=== PATIENT | female | born 1960 | race Hispanic/Latino ===

== ENCOUNTER 2023-07-03 17:20 | Emergency (ER) | payer OTHER | END 2023-07-03 18:35 | disposition home or self-care (01) | LOC: ERS 17:20 | DX: M54.2 Cervicalgia (principal); E11.9 Type 2 diabetes mellitus without complications; I10 Essential (primary) hypertension; Z79.84 Long term (current) use of oral hypoglycemic drugs | CPT/HCPCS: 99283 ==